=== PATIENT | female | born 1965 | race Caucasian/White ===

== ENCOUNTER 2019-04-14 12:49 | Day surgery (SDC) | payer MEDICARE, BC ==
[2019-04-13 17:12] VITALS: BMI 35.0
[~2019-04-14] VITALS: Ht 165.1 cm; Wt 108.9 kg
[2019-04-14] VITALS (20 sets, daily range): BP systolic 119–169; BP diastolic 71–84; PULSE 74–102; RESP 16–18; Ht 165.1 cm; Wt 108.9 kg
[~2019-04-14 12:49] MED LIST: CLINDAMYCIN 900 MG/D5W (PMX) 50 ML IVPB SCH; LACTATED RINGER'S 1,000 ML IV SCH
[2019-04-14] MEDS ORDERED: EXEN2PEN SQ (13:28)
[2019-04-14] MEDS ORDERED: METF100010 PO (13:29)
[2019-04-14] MEDS ORDERED: ASPI81TA52 PO (13:29)
[2019-04-14] MEDS ORDERED: GLIP-160 PO (13:30)
[2019-04-14] MEDS ORDERED: ALBU18HF INHALATION (13:30)
[2019-04-14] MEDS ORDERED: ROPI0.5T2 PO (13:30)
[2019-04-14] MEDS ORDERED: ATOR40TA68 PO (13:31)
[2019-04-14] MEDS ORDERED: LOSA1TAB25 PO (13:35)
[2019-04-14] MEDS ORDERED: LINA5TAB PO (13:36)
[2019-04-14] MEDS ORDERED: POTA8TAB2 PO (13:36)
[2019-04-14] MEDS ORDERED: LEVO5TAB PO (13:36)
--- NOTE | 2019-04-14 15:33 | HPN ---
Date/Time of Note Date/Time of Note DATE: 04/14/19 TIME: 15:33 Interval H&P Admission Note Pt. seen H&P reviewed: No system changes PAT ORELLANA April 14, 2019 15:33
[2019-04-14] MEDS ORDERED: BUPIVACAINE 0.5% (SDV) 30 ML INJ ONE (15:54)
[2019-04-14] MEDS ORDERED: PROPOFOL 200 MG INJ ONE (16:00)
--- NOTE | 2019-04-14 16:01 | PREAC ---
Date/Time of Note Date/Time of Note DATE: 04/14/19 TIME: 15:59 Anesthesia Eval and Record Evaluation Time Pre-Procedure Interview DATE: 04/14/19 TIME: 15:59 Age 53 Sex female NPO: 8 hrs Preoperative diagnosis right thumb capometacarpal join, r carpal tunnel syn. de quervian tenisynovitis Planned procedure r thumb joint arthroplasty release carpal tunnel, and de quervian Past Medical History Past Medical History: Includes Cardio: HTN, CAD Endo: Diabetes Pulm: COPD Surgery & Anesthesia Issues No known issue Meds Anticoagulation: No Beta Cristhian within 24 hr: No Reason Beta Cristhian not given: Pt. not on B-Cristhian Reported Medications Potassium Chloride* (Klor-Con*) 8 Meq Tablet.sa, 8 MEQ PO DAILY, TAB 04/14/19 Linagliptin (TRADJENTA) 5 Mg Tablet, 5 MG PO DAILY, TAB 04/14/19 Levocetirizine Dihydrochloride (LEVOCETIRIZINE DIHYDROCHLORIDE) 5 Mg Tablet, 5 MG PO DAILY, #30 TAB 04/14/19 Losartan-Hydrochlorothiazide (Losartan-HCTZ) 100-25 Mg Tab, 1 TAB PO DAILY, TAB 04/14/19 Atorvastatin* (Atorvastatin*) 40 Mg Tablet, 40 MG PO QHS, #30 TAB 04/14/19 Albuterol Sulfate* (Ventolin HFA*) 18 Gm Hfa.aer.ad, 2 PUFF INHALATION Q4H, #1 INHALER 04/14/19 Glipizide XL* (Glipizide XL*) 5 Mg Tabsr, 5 MG PO DAILY, TAB 04/14/19 Ropinirole Hcl* (Ropinirole Hcl*) 0.5 Mg Tablet, 0.5 MG PO HS, TAB 04/14/19 Aspirin (Low Dose Aspirin) 81 Mg Tablet.dr, 81 MG PO DAILY, #30 TAB 04/14/19 Metformin Hcl* (Metformin Hcl*) 1,000 Mg Tablet, 1000 MG PO WITH BREAKFAST DINNE, #60 TAB 04/14/19 Exenatide Microspheres (Bydureon Pen) 2 Mg/0.65 Ml Pen.injctr, 2 MG SQ Q7D, EACH 04/14/19 Current Medications Lactated Ringer's 1,000 ml @ 20 mls/hr Q24H IV ; Start 04/14/19 at 07:30; Stop 04/16/19 at 09:29 Clindamycin HCl/ Dextrose 50 ml @ 50 mls/hr PREOP IVPB ; Start 04/14/19 at 07:30; Stop 04/14/19 at 16:00 Meds reviewed: Yes Allergies Coded Allergies: Penicillins (Verified Allergy, Unknown, SWELLING, 04/14/19) Allergies Reviewed: Yes Labs/Studies Labs Reviewed: Reviewed by anesthesiologist test: N/A Studies: ECG (sr), CXR (nl) Pre-procedure Exam Last vitals Vital Signs Date Temp Pulse Resp B/P (MAP) Pulse Ox O2 O2 Flow FiO2 Time Delivery Rate 04/14/19 97.9 83 16 119/75 96 Room Air 15:32 (90) Airway: Adequate mouth opening Mallampati: Mallampati I Teeth: Abnormal (brocken upper tooth) Lung: Normal Heart: Normal ASA Physical Status ASA physical status: 2 Emergency: None Planned Anesthetic General/MAC: LMA Nerve block: Brachial plexus (left) Planned Pain Management Single shot nerve block, Parenteral pain med Pre-operative Attestations Prior to commencing anesthesia and surgery, the patient was re-evaluated, there was verification of: *The patient's identity *The results of appropriate recent lab work and preoperative vital signs *The above evaluation not changing prior to induction *Anesthetic plan, risk benefits, alternative and complications discussed with patient/family; questions answered; patient/family understands, accepts and wishes to proceed. RVIKA POPE MD April 14, 2019 16:01
[2019-04-14] MEDS ORDERED: FENTAnyl 50 MCG/ML VIAL ONE ×2 (16:08→16:55)
[2019-04-14] MEDS ORDERED: MIDAZOLAM 1 MG/ML 2 ML INJ ONE (16:08)
[2019-04-14] MEDS ORDERED: PROPOFOL 20 ML ONE (16:08)
[2019-04-14] MEDS ORDERED: CEFAZOLIN 1 GM INJ ONE (16:18)
[2019-04-14] MEDS ORDERED: ROPIVACAINE 0.2% 20 ML VIAL ONE (16:38)
[2019-04-14] MEDS ORDERED: KETOROLAC 30 MG INJ ONE (16:40)
[2019-04-14] MEDS ORDERED: ONDANSETRON 4 MG INJ ONE (16:40)
[2019-04-14] MEDS ORDERED: METOCLOPRAMIDE 10 MG INJ ONE (16:40)
[2019-04-14] MEDS ORDERED: hydrALAzine 20 MG INJ IV PRN (17:00)
[2019-04-14] MEDS ORDERED: MEPERIDINE 25 MG INJ IV PRN (17:00)
[2019-04-14] MEDS ORDERED: EPHEDrine 25 MG/5 ML SYG IV PRN (17:00)
[2019-04-14] MEDS ORDERED: HYDROmorphONE 1 MG/5 ML IV SYRINGE IV PRN ×3 (17:00)
[2019-04-14] MEDS ORDERED: FENTAnyl 50 MCG/ML VIAL IV PRN ×3 (17:00)
[2019-04-14] MEDS ORDERED: DIPHENHYDRAMINE 50 MG INJ IV PRN (17:00)
[2019-04-14] MEDS ORDERED: LABETALOL HCL 20MG INJ IV PRN (17:00)
[2019-04-14] MEDS ORDERED: OXYCODONE/ACETAMINOPHEN (5/325) TAB PO PRN ×2 (17:00)
--- NOTE | 2019-04-14 17:46 | OPPN ---
Date/Time of Note Date/Time of Note DATE: 04/14/19 TIME: 17:45 Operative Report Preoperative Diagnosis Right thumb CMC osteoarthritis Right carpal tunnel syndrome Postoperative Diagnosis Right thumb CMC osteoarthritis Right carpal tunnel syndrome Operation/Procedure Performed Right thumb CMC arthroplasty with excision of trapezium ligament reconstruction with suspensionplasty right wrist first dorsal compartment release Right carpal tunnel release Surgeon see signature line social research assistant none Anesthesia: general Estimated blood loss: 0 - 10 ml's Transfusion Required none Specimen none Grafts/Implants none Complications none PAT ORELLANA April 14, 2019 17:46
[2019-04-14] MEDS: ONDANSETRON 4 MG INJ IV PRN ×2 (18:12→20:12)
--- NOTE | 2019-04-14 21:53 | OPR ---
DATE OF OPERATION: 04/14/2019 SURGEON: Pat Marx MD ANESTHESIA: General. PREOPERATIVE DIAGNOSES: 1. Right thumb carpometacarpal joint osteoarthritis. 2. Right carpal tunnel syndrome. POSTOPERATIVE DIAGNOSES: 1. Right thumb carpometacarpal joint osteoarthritis. 2. Right carpal tunnel syndrome. PROCEDURES: 1. Right thumb carpometacarpal joint arthroplasty with excision of trapezium. 2. Right thumb CMC joint ligament reconstruction with suspensionplasty using abductor pollicis longu s tendon. 3. Right wrist first dorsal compartment release. 4. Right carpal tunnel release, open. OPERATIVE FINDINGS: Right thumb carpometacarpal joint osteoarthritis with compression of the median nerve at the carpal tunnel. INDICATIONS FOR PROCEDURE: A 53-year-old female with longstanding right hand pain who failed conserv ative measures and elected to proceed with surgery understanding the risks and benefits. DESCRIPTION OF PROCEDURE: The patient was seen in the preoperative area and all further questions we re answered. Again, she gave informed consent understanding the risks and benefits. She was taken t o operative suite and placed in the supine position. She was placed under general anesthesia, and to urniquet placed in the right upper extremity. Right upper extremity was prepped with ChloraPrep stic k and draped in usual sterile fashion. Ancef 2 grams IV was given and Esmarch bandage was used to ex sanguinate the extremity and tourniquet inflated to 250 mmHg. Attention was first turned to the carp al tunnel and a 2 cm incision at the base of the palm was utilized with sharp dissection carried down through skin and subcutaneous tissue. The palmar aponeurosis was incised along its ulnar border and retractors were deepened. The transverse carpal ligament was divided along its ulnar border approxi mately 3 mm radial to the hook of the hamate. Retractors were placed proximally and distally, and th e proximal and distal extents of the transverse carpal ligament were divided under direct visualizati on. Wound was copiously irrigated. Skin closed with 5-0 nylon. Attention was turned to the thumb C MC joint and a longitudinal incision over the dorsal aspect of the thumb CMC joint was utilized with sharp dissection carried down through skin and subcutaneous tissue. The EPL and EPB tendons were ret racted and the dorsal joint capsule was visualized. A longitudinal capsulotomy of the thumb CMC join t was performed using 15 blade knife. The dorsal branch of the radial artery was protected. The cap mat overlying the trapezium was circumferentially dissected around and freed up from surrounding tis sues and ligamentous attachments. The trapezium was completely excised and the wound was copiously i rrigated. Attention was then turned to the first dorsal compartment release. The EPB tendon was bravo ntified at its distal point and was dissected out proximally to its tendon sheath and the first dorsa l compartment was incised along its dorsal border decompressing the EPB and APL tendons. A large sli p of the APL tendon was identified distally and was dissected out proximally. A counterincision at t he mid forearm was utilized with sharp dissection carried down through skin and subcutaneous tissue. The fascia overlying the APL musculature and tendons was incised and the slip of the APL tendon to b e used for ligament reconstruction and suspensionplasty was transected proximally. The tendon was br ought out distally and was brought deep to the flexor carpi radialis tendon. With the thumb in gentl e traction and gentle tension on the APL tendon, the APL tendon was sutured to the FCR tendon. This was performed using 3-0 Ethibond suture. After multiple sutures, the thumb was quite stable and the remaining tendon was placed into a ball and sutured together and placed in the defect site. The woun d was copiously irrigated. The capsule closed with 3-0 Ethibond. Skin closed with 5-0 nylon. Xerof orm placed over the wounds followed by sterile gauze, Webril, and a short arm thumb spica splint. To urniquet deflated after 60 minutes and the patient was awakened from anesthesia. She was taken to po stoperative suite in stable condition, tolerated the procedure well without complication. SPECIMENS: None. ESTIMATED BLOOD LOSS: 5 mL. COUNTS: Sponge, instrument, needle counts correct. TOURNIQUET TIME: 60 minutes. CONDITION ON DISCHARGE: Stable. The patient was given a nonrefillable 5-day prescription pain medication for surgery today. Dictated By: PAT TOURE/PATRICIA Conf#: [id number] DID#: [id number]
--- NOTE | 2019-04-15 09:09 | PAC ---
Date/Time of Note Date/Time of Note DATE: 04/15/19 TIME: 09:08 Post-Anesthesia Notes Post-Anesthesia Note Last documented vital signs Vital Signs Date Temp Pulse Resp B/P (MAP) Pulse Ox O2 O2 Flow FiO2 Time Delivery Rate 04/14/19 98.2 74 17 152/76 98 Room Air 21:00 (101) 04/14/19 2.0 19:16 04/14/19 98.2 18:02 Activity: WNL Respiratory function: WNL Cardiovascular function: WNL Mental status: Baseline Pain reasonably controlled: Yes Hydration appropriate: Yes Nausea/Vomiting absent: No RIVKA POPE MD April 15, 2019 09:08
== END 2019-04-14 21:01 | disposition home or self-care (01) ==
LOC: SDS 12:49
PROVIDERS: ATTEND Orthopaedic Surgery Hand Surgery
DX: M18.11 Unilateral primary osteoarthritis of first carpometacarpal joint, right hand (principal); G56.01 Carpal tunnel syndrome, right upper limb; I10 Essential (primary) hypertension; I25.10 Atherosclerotic heart disease of native coronary artery without angina pectoris; E11.9 Type 2 diabetes mellitus without complications; J44.9 Chronic obstructive pulmonary disease, unspecified; Z79.82 Long term (current) use of aspirin; Z79.84 Long term (current) use of oral hypoglycemic drugs
CPT/HCPCS: 25447; 26480; 64721; 82962; J0690; J1170; J1885; J2250; J2405; J2765; J3010; J2795